=== PATIENT | male | born 2000 | race Two or more races ===

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

== ENCOUNTER 2023-03-29 23:47 | Emergency (ER) | payer MEDICAID ==
[~2023-03-29] VITALS: Ht 180.3 cm; Wt 80.8 kg
[2023-03-30 00:44] LABS: Basophils # (auto) 0 10 ^3/uL (0-0.2); Basophils % (auto) 0.3 % (0.0-2.0); Eosinophils # (auto) 0.1 10 ^3/uL (0-0.8); Eosinophils % (auto) 0.8 % (0.0-7.0); Hematocrit 41.8 % (41.0-53.0); Hemoglobin 14.3 g/dL (13.5-17.5); Lymphocytes % (auto) 26.3 % (10.0-50.0); Mean Corpuscular Hemoglobin 29.7 pg (28.0-32.0); Mean Corpuscular Hgb Conc. 34.2 g/dL (32.0-36.0); Monocytes % (auto) 12.6 % (0.0-12.0); Neutrophils # (auto) 4.5 10 ^3/uL (1.6-8.6); Red Cell Distribution Width 15.7 % (11.8-14.3); White Blood Cell 7.5 10^3/uL (4.4-10.8)
[2023-03-30 01:03] LABS: Salicylate < 3.0 mg/dL (2.8-20.0)
[2023-03-30 01:16] LABS: Alanine Aminotransferase 42 U/L (7-40); Alkaline Phosphatase 68 U/L (46-116); Aspartate Aminotransferase 23 U/L (13-40); BUN/Creatinine Ratio 10.3 (10.0-20.0); Blood Alcohol < 3.0 mg/dL (<10); Blood Urea Nitrogen 12 mg/dL (9-23); Chloride 106 mmol/L (98-107); Glucose 89 mg/dL (74-106); Potassium 3.8 mmol/L (3.5-5.1); Sodium 141 mmol/L (136-145)
[2023-03-30 01:17] LABS: Anion Gap 9 (5-15); Bilirubin, Total 0.3 mg/dL (0.2-1.0); Calcium 9.7 mg/dL (8.5-10.1); Carbon Dioxide 26 mmol/L (20-30); Total Protein 7.1 g/dL (5.7-8.2)
[2023-03-30 01:21] VITALS: PULSE 82; RESP 18; O2SAT 99
[2023-03-30 01:56] LABS: Urine Bacteria NONE SEEN /hpf (None Seen); Urine Blood Negative /uL (Negative); Urine Clarity Clear (Clear); Urine Protein, UAD Negative (Negative); Urine Specific Gravity 1.006 (1.001-1.035); Urine Urobilinogen Normal (Negative); Urine WBC <1 /hpf (0 - 3); Urine pH 6.5 (5.0-8.0)
[2023-03-30 02:01] LABS: Urine Color Straw (Yellow)
[2023-03-30 02:05] LABS: Amphetamine Screen, Urine Neg (NEGATIVE); Barbiturate Scree,Urine Neg (NEGATIVE); Benzodiazephine Screen, Urine Neg (NEGATIVE); Cannabinoid Screen, Urine Pos (NEGATIVE); Cocaine Screen, Urine Neg (NEGATIVE); Opiate Scree,Urine Neg (NEGATIVE); Phencyclidine Screen, Urine Neg (NEGATIVE)
[2023-03-30] MEDS ORDERED: OLANZapine 5 MG TAB PO PRN (04:45)
[2023-03-30 07:40] VITALS: PULSE 67; RESP 16; O2SAT 98
[2023-03-30] MEDS ORDERED: ACETAMINOPHEN 325 MG TAB PO ONE (17:45)
[2023-03-31] MEDS ORDERED: ONDANSETRON ODT 4 MG TAB PO ONE
[2023-03-31 07:35] VITALS: PULSE 77; RESP 14; O2SAT 98
[2023-03-31 11:20] VITALS: BP 104/62; PULSE 81; RESP 18; TEMP 98; O2SAT 97
== END 2023-03-31 11:44 | disposition short-term general hospital (02) ==
LOC: ER 23:47
DX: R45.851 Suicidal ideations (principal); H61.23 Impacted cerumen, bilateral; F41.9 Anxiety disorder, unspecified; F17.210 Nicotine dependence, cigarettes, uncomplicated; Z79.899 Other long term (current) drug therapy
CPT/HCPCS: 36415; 80053; 80307; 80320; 80329; 81001; 85025

== ENCOUNTER 2023-09-24 18:35 | Emergency (ER) | payer MEDICAID ==
[~2023-09-24] VITALS: Ht 177.8 cm; Wt 75.6 kg
[2023-09-24 18:43] VITALS: BP 98/60; PULSE 100; RESP 16; O2SAT 97
== END 2023-09-24 20:44 | disposition left against medical advice (07) ==
LOC: ER 18:35
DX: M54.50 Low back pain, unspecified (principal); Z53.21 Procedure and treatment not carried out due to patient leaving prior to being seen by health care provider
CPT/HCPCS: 72100